=== PATIENT | female | born 2005 | race Caucasian/White ===

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

== ENCOUNTER 2024-04-05 17:41 | Emergency (ER) | payer MEDICAID | END 2024-04-05 19:13 | disposition home or self-care (01) | LOC: MADERS 17:41 | DX: R11.0 Nausea (principal); R10.9 Unspecified abdominal pain | CPT/HCPCS: 99284 ==

== ENCOUNTER 2024-05-04 01:17 | Emergency (ER) | payer OTHER ==
[2024-05-04] MEDS ORDERED: Ketorolac Tromethamine 10 MG TAB ONE (01:48)
== END 2024-05-04 02:09 | disposition home or self-care (01) ==
LOC: MADERS 01:17
DX: S63.501A Unspecified sprain of right wrist, initial encounter (principal); W22.8XXA Striking against or struck by other objects, initial encounter

== ENCOUNTER 2024-09-25 23:54 | Emergency (ER) | payer OTHER, MEDICAID ==
[2024-09-26 00:26] LABS: Bilirubin Negative (Negative); Blood, Urine Negative (Negative); Clarity Clear (Clear); Glucose, Urine (Dipstick) Negative (Negative); Ketone, Urine Negative (Negative); Leukocyte Negative (Negative); Nitrite Negative (Negative); Protein, Urine (Dipstick) Negative (Neg-Trace); Specific Gravity, Urine 1.015 (1.005-1.030); Urobilinogen 0.2 mg/dL (Less than 2)
[2024-09-26 00:28] LABS: Bacteria/HPF 2+ HPF (None Seen); CAUTI Indications for Culture Pregnancy; RBC/HPF None Seen HPF (0-3); WBC/HPF 0-3 HPF (0-3)
[2024-09-26 00:29] LABS: Urine Culture Reflex Yes Yes
[2024-09-26] MEDS ORDERED: Acetaminophen 325 MG TAB ONE (01:07)
[2024-09-26 01:22] LABS: #Basophils 0.1 thou/uL (0.0-0.2); #Eosinophils 0.1 thou/uL (0.0-0.7); #Lymphocytes 2.4 thou/uL (1.20-3.40); #Monocytes 0.5 thou/uL (0.11-0.59); #Neutrophils 2.9 thou/uL (1.40-6.50); %Basophils 0.9 % (0.0-1.0); %Eosinophils 1.4 % (0.0-10.0); %Lymphocytes 39.7 % (28.0-48.0); %Monocytes 8.9 % (0.0-4.0); %Neutrophils 49.1 % (31.0-61.0); Hematocrit 36.8 % (36.0-47.0); Hemoglobin 12.1 g/dL (12.0-16.0); Mean Corpuscular HGB CONC 32.8 g/dL (32.0-36.0); Mean Corpuscular Hemoglobin 27.7 pg (25.0-35.0); Mean Corpuscular Volume 84.4 fl (78.0-98.0); Mean Platelet Volume 10.2 fL (7.4-10.4); Platelet Count 166 10x3/uL (130-400); RBC Distribution Width 12.7 % (11.5-14.5); Red Blood Cell (RBC) Count 4.36 mill/uL (4.00-5.20)
[2024-09-26 01:25] LABS: Pregnancy Test - Urine (BHCG) POSITIVE (Negative); Pregu Control Background? CLEAR/WHITE (CLR/WHITE); Pregu Control Bar Appear? YES (CONTROL BAR); Specific Gravity 1.015 (1.002-1.036)
[2024-09-26 01:43] LABS: ALT (SGPT) 14 U/L (8-55); AST (SGOT) 15 U/L (5-34); Albumin 3.9 g/dL (3.5-5.0); Alkaline Phosphatase 64 U/L (40-100); Anion Gap 10 mmol/L (10-20); BUN (Urea Nitrogen) 8 mg/dL (7.0-18.7); Bilirubin, Total 0.2 mg/dL (0.2-1.2); Calc. Creatinine Clearance 0 mL/min (70-130); Calcium 8.7 mg/dL (7.8-10.44); Carbon Dioxide 21 mmol/L (22-29); Chloride 108 mmol/L (98-107); Estimated GFR 128; Globulin 2.8 g/dL (2.4-3.5); Glucose 106 mg/dL (70-105); Potassium 3.4 mmol/L (3.5-5.1); Protein, Total 6.7 g/dL (6.0-8.3); Sodium 136 mmol/L (136-145)
== END 2024-09-26 02:15 | disposition short-term general hospital (02) ==
LOC: MADERS 23:54
DX: O99.891 Other specified diseases and conditions complicating pregnancy (principal); M25.551 Pain in right hip; Z3A.01 Less than 8 weeks gestation of pregnancy
CPT/HCPCS: 36415; 80053; 81001; 81025; 84702; 85025; 86900; 86901; 87086; 99284

== ENCOUNTER 2024-10-25 18:31 | Emergency (ER) | payer OTHER, MEDICAID ==
[2024-10-25 19:17] LABS: Bilirubin Small (Negative); Blood, Urine Negative (Negative); Glucose, Urine (Dipstick) Negative (Negative); Ketone, Urine 40 mg/dL (Negative); Leukocyte Negative (Negative); Nitrite Negative (Negative); Protein, Urine (Dipstick) 100 mg/dL (Neg-Trace); Urobilinogen 0.2 mg/dL (Less than 2); pH, Urine 5.5 (5.0-9.0)
[2024-10-25 19:24] LABS: Band 9 % (5-11); Hemoglobin 13.9 g/dL (12.0-16.0); Lymphocytes 16 % (28-48); MDiff Complete? YES; Mean Corpuscular HGB CONC 32.5 g/dL (32.0-36.0); Mean Corpuscular Hemoglobin 27.1 pg (25.0-35.0); Mean Corpuscular Volume 83.6 fl (78.0-98.0); Mean Platelet Volume 10.5 fL (7.4-10.4); Monocytes 10 % (0-4); Neutrophil 64 % (31-61); Platelet Adequacy Comment Appears Decreased; Platelet Count 110 10x3/uL (130-400); RBC Distribution Width 12.9 % (11.5-14.5); Red Blood Cell (RBC) Count 5.14 mill/uL (4.00-5.20); White Blood Cell (WBC) Count 2.2 10x3/uL (4.8-10.8)
[2024-10-25 19:24] LABS: Clarity Cloudy (Clear); Specific Gravity, Urine 1.035 (1.002-1.036)
[2024-10-25 19:27] LABS: ALT (SGPT) 17 U/L (Less than 34); AST (SGOT) 21 U/L (11-34); Albumin 4.5 g/dL (3.1-4.5); Alkaline Phosphatase 68 U/L (40-100); Anion Gap 16 mmol/L (10-20); BUN (Urea Nitrogen) 8 mg/dL (7.0-18.7); Bilirubin, Total 0.4 mg/dL (0.3-1.2); Calc. Creatinine Clearance 0 mL/min (70-130); Calcium 9.5 mg/dL (7.8-10.44); Carbon Dioxide 18 mmol/L (22-29); Chloride 104 mmol/L (98-107); Estimated GFR 131; Globulin 3.4 g/dL (2.4-3.5); Glucose 91 mg/dL (70-105); Lipase 16 U/L (8-78); Potassium 3.9 mmol/L (3.5-5.1); Protein, Total 7.9 g/dL (6.0-8.3); Sodium 134 mmol/L (136-145)
[2024-10-25 19:32] LABS: Bacteria/HPF 4+ HPF (None Seen); CAUTI Indications for Culture Pregnancy; RBC/HPF 0-3 HPF (0-3); Squamous Epithelial Greater than 50 HPF (0-3)
[2024-10-25 19:33] LABS: Urine Culture Reflex Yes Yes
[2024-10-25] MEDS ORDERED: Ondansetron PF 4 MG/2 ML Vial ONE (19:51)
[2024-10-25] MEDS ORDERED: cefTRIAXone (ROCEPHIN) 1 GM VIAL ONE (19:51)
[2024-10-25] MEDS ORDERED: Sodium Chloride 0.9% 100 ML ONE (19:51)
[2024-10-25] MEDS ORDERED: Acetaminophen 500 MG TAB ONE (19:51)
[2024-10-25] MEDS ORDERED: Sodium Chloride 0.9% 1,000 ML ONE (19:51)
[2024-10-25] MEDS ORDERED: Oseltamivir 75 MG CAP ONE (20:09)
== END 2024-10-25 23:50 | disposition short-term general hospital (02) ==
LOC: MADERS 18:31
DX: O99.119 Other diseases of the blood and blood-forming organs and certain disorders involving the immune mechanism complicating pregnancy, unspecified trimester (principal); O99.891 Other specified diseases and conditions complicating pregnancy; J11.1 Influenza due to unidentified influenza virus with other respiratory manifestations; R82.71 Bacteriuria; R00.0 Tachycardia, unspecified; Z3A.11 11 weeks gestation of pregnancy
CPT/HCPCS: 80053; 81001; 83605; 83690; 84702; 85025; 87040; 87086; 87428; 96361; 96365; 96375; J0696; J2405; J7030

== ENCOUNTER 2024-11-06 16:34 | Emergency (ER) | payer OTHER, MEDICAID ==
[2024-11-06] MEDS ORDERED: Acetaminophen 325 MG TAB ONE (16:51)
[2024-11-06 17:09] LABS: Bilirubin Negative (Negative); Blood, Urine Negative (Negative); Glucose, Urine (Dipstick) Negative (Negative); Ketone, Urine Trace mg/dL (Negative); Leukocyte Negative (Negative); Nitrite Negative (Negative); Protein, Urine (Dipstick) Negative (Neg-Trace); Urobilinogen 0.2 mg/dL (Less than 2)
[2024-11-06 17:27] LABS: Clarity Cloudy (Clear); Specific Gravity, Urine 1.024 (1.002-1.036)
[2024-11-06 17:29] LABS: Bacteria/HPF Rare-Few HPF (None Seen); CAUTI Indications for Culture Pelvic or flank pain; RBC/HPF 0-3 HPF (0-3); WBC/HPF None Seen HPF (0-3)
[2024-11-06 17:30] LABS: Mucous/LPF 3+ LPF (<2+); Urine Culture Reflex No No
== END 2024-11-06 17:44 | disposition home or self-care (01) ==
LOC: MADERS 16:34
DX: M62.830 Muscle spasm of back (principal)
CPT/HCPCS: 81001; 99284